=== PATIENT | male | born 1955 | race Caucasian/White ===

== ENCOUNTER 2018-01-18 15:34 | Inpatient (IN) | payer OTHER ==
[~2018-01-18] VITALS: Ht 175.3 cm; Wt 90.7 kg
[2018-01-28] MEDS ORDERED: COZAAR50 MG PO (11:48)
[2018-01-28] MEDS ORDERED: FOLIC ACID1 MG PO (11:48)
[2018-01-28] MEDS ORDERED: BETIMOL5 ML OP (11:49)
== END 2018-02-05 17:16 | disposition home or self-care (01) | DRG 331 ==
LOC: SURH 02-02 06:13 → O/R 02-02 06:13 → SURH 02-02 07:00
PROVIDERS: Colon & Rectal Surgery
PROC: 0DJD8ZZ Inspection of Lower Intestinal Tract, Via Natural or Artificial Opening Endoscopic (ICD-10-PCS; 2018-02-02)
PROC: 0DTN4ZZ Resection of Sigmoid Colon, Percutaneous Endoscopic Approach (ICD-10-PCS; principal; 2018-02-02 07:00)
DX: K57.32 Diverticulitis of large intestine without perforation or abscess without bleeding (principal); I10 Essential (primary) hypertension; D69.59 Other secondary thrombocytopenia